=== PATIENT | male | born 1985 | race Caucasian/White ===

== ENCOUNTER 2025-04-23 16:02 | Emergency (ER) | payer SELFPAY ==
[2025-04-23] MEDS ORDERED: Ibuprofen 200 MG TAB ONE (16:35)
== END 2025-04-23 18:21 | disposition home or self-care (01) ==
LOC: CSHERS 16:02
DX: S33.5XXA Sprain of ligaments of lumbar spine, initial encounter (principal); F17.210 Nicotine dependence, cigarettes, uncomplicated; X58.XXXA Exposure to other specified factors, initial encounter
CPT/HCPCS: 72128; 72131